=== PATIENT | female | born 1960 | race Caucasian/White ===

== ENCOUNTER 2018-03-04 19:50 | Emergency (ER) | payer MEDICAID ==
[~2018-03-04] VITALS: Ht 170.2 cm; Wt 63.5 kg
[2018-03-04 19:57] VITALS: BP_SYST 123
[2018-03-04] MEDS ORDERED: fentaNYL CITRATE/PF 100 MCG/2 ML AMP IM ONE (20:45)
[2018-03-04] MEDS ORDERED: LORazepam 1 MG TABLET PO ONE (20:45)
[2018-03-04 21:20] VITALS: BP_SYST 123
== END 2018-03-04 21:20 | disposition home or self-care (01) ==
LOC: SED 19:50
DX: M43.6 Torticollis (principal); R03.0 Elevated blood-pressure reading, without diagnosis of hypertension; Z81.1 Family history of alcohol abuse and dependence
CPT/HCPCS: 72040; 96372; 99284; J3010